=== PATIENT | male | born 1975 | race Caucasian/White ===

== ENCOUNTER 2020-06-08 17:18 | Inpatient (IN) | payer BC ==
[~2020-06-08] VITALS: Ht 172.7 cm; Wt 102.0 kg
[2020-06-08 18:56] LABS: BASOPHILS ABSOLUTE AUTO 0.05 K/mm3 (0.00-0.23); BASOPHILS PERCENT AUTO 0 % (0-2); EOSINOPHILS PERCENT AUTO 0 % (0-6); Hematocrit 47.7 % (37.0-53.0); Hemoglobin 16.4 g/dL (13.5-17.5); IMMATURE GRAN ABSOLUTE AUTO 0.11 K/mm3 (0.00-0.10); IMMATURE GRAN PERCENT AUTO 1 % (0-1); LYMPHOCYTES ABSOLUTE AUTO 1.31 K/mm3 (0.84-5.20); LYMPHOCYTES PERCENT AUTO 7 % (21-46); MONOCYTES ABSOLUTE AUTO 0.69 K/mm3 (0.16-1.47); MONOCYTES PERCENT AUTO 4 % (4-13); Mean Corpuscular HGB 29.3 pg (26.0-34.0); Mean Corpuscular HGB Conc 34.4 g/dL (31.5-36.5); Mean Corpuscular Volume 85 fL (80-100); NEUTROPHILS ABSOLUTE AUTO 17.79 K/mm3 (1.96-9.15); NEUTROPHILS PERCENT AUTO 89 % (41-73); Platelet Count 253 K/mm3 (150-400); RDW Coefficient Variation 11.6 % (11.7-14.2); RDW Standard Deviation 35.9 fL (35.1-46.3); White Blood Cell Count 19.95 K/mm3 (4.00-11.30)
[2020-06-08 19:14] LABS: Alanine Aminotransfer (ALT/SGP 32 U/L (12-78); Albumin/Globulin Ratio 0.9 (0.8-1.8); Alk Phos 99 U/L (50-136); Anion Gap 9 mmol/L (6-16); Aspartate Aminotrans (AST/SGOT 21 U/L (12-37); Bilirubin, Total 0.5 mg/dL (0.1-1.0); Blood Urea Nitrogen 15 mg/dL (8-24); Bun/Creatinine Ratio 20.7 (12.0-20.0); CO2, Blood 24 mmol/L (21-32); Calcium, Blood 9.2 mg/dL (8.5-10.1); Chloride, Blood 103 mmol/L (98-108); Creatinine, Blood 0.72 mg/dL (0.60-1.20); Globulin, Blood 4.4 g/dL (2.2-4.0); Glomerular Filtration Rate >60 (60-); Glucose, Blood 108 mg/dL (70-99); Sodium, Blood 136 mmol/L (136-145); Total Protein, Blood 8.4 g/dL (6.4-8.2)
[2020-06-08 20:07] LABS: International Normalized Ratio 0.96; Prothrombin Time Results 10.3 Sec (9.7-11.5)
[2020-06-08 21:05] LABS: Source, Urine Clean Catch
[2020-06-08 21:07] LABS: Bilirubin, Urine Neg (Neg); Blood, Urine Neg (Neg); Glucose Qualitative, Urine Neg (Neg); Ketones, Urine 2+ (Neg); Leukocyte Esterase, Urine Neg (Neg); Nitrite, Urine Neg (Neg); Protein, Urine Neg (Neg); Urobilinogen, Urine NORM (Normal)
[2020-06-08 21:20] LABS: U Amphetamine Screen Not Detected; U Barbituate Screen Not Detected; U Benzodiazapine Screen Not Detected; U Buprenorphine Screen Not Detected; U Cannabinoids Screen Not Detected; U Cocaine Screen Not Detected; U Methadone Screen Not Detected; U Methamphetamine Screen Not Detected; U Opiates Screen Not Detected; U Oxycodone Screen Not Detected; U Phencyclidine Screen Not Detected; U Propoxyphene Screen Not Detected
[2020-06-08 21:23] LABS: Appearance, Urine Clear (Clear); Color, Urine Yellow (P-Yellow)
[2020-06-08 22:24] LABS: Influenza A, PCR Negative (NEGATIVE); Influenza B, PCR Negative (NEGATIVE); Resp Syncytial Virus, PCR Negative (NEGATIVE); SARS-Cov-2 (COVID-19) PCR, MMC Negative (NEGATIVE)
[2020-06-08 22:31] LABS: Appearance, CSF Clear (Clear); Color, CSF No Color (No Color); RBC Count, CSF 1 /mm3 (0-0); WBC Count, CSF 0 /mm3 (0-5)
[2020-06-08 22:41] LABS: Glucose, CSF 59 mg/dL (40-70)
[2020-06-08 22:42] LABS: Appearance, CSF Clear (Clear); Color, CSF No Color (No Color); RBC Count, CSF 91 /mm3 (0-0); WBC Count, CSF 0 /mm3 (0-5)
[2020-06-08 22:55] LABS: Lymphocytes, CSF 36 % (40-80); Monocytes, CSF 26 % (15-45); Neutrophils, CSF 38 % (0-6)
[2020-06-08 23:00] LABS: Lymphocytes, CSF 15 % (40-80); Monocytes, CSF 11 % (15-45); Neutrophils, CSF 74 % (0-6)
[2020-06-09 00:31] LABS: Enterovirus Not Detected (NOT DETECT); Escherichia Coli K1 Not Detected (NOT DETECT); Haemophilus Influenza Not Detected (NOT DETECT); Herpes Simplex Virus 1 Not Detected (NOT DETECT); Listeria Monocytogenes Not Detected (NOT DETECT); Neisseria Meningitidis Not Detected (NOT DETECT); Streptococcus Agalactiae Not Detected (NOT DETECT); Streptococcus Pneumoniae Not Detected (NOT DETECT)
[2020-06-09 00:32] LABS: Cryptococcus Neoformans/Gattii Not Detected (NOT DETECT); Herpes Simplex Virus 2 Not Detected (NOT DETECT); Human Herpesvirus 6 Not Detected (NOT DETECT); Human Parechovirus Not Detected (NOT DETECT); Varicella Zoster Virus Not Detected (NOT DETECT)
--- NOTE | 2020-06-09 05:00 | NUR ---
ADMIT TO ICU 13 PT ARRIVES TO ICU-13 VIA GURNEY AT 0155. PT ABLE TO AMBULATE TO ICU BED WITH MINIMAL ASSISTANCE. ON RA, NSR, VSS. PT COMPLAINS OF HEADACHE /. HE STATES HE WANTS TO SLEEP. 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 DURING INITIAL SCREEN QUESTIONS AND MRI SCREENING QUESTIONS, PT YELLS "ITS NO TO EVERYTHING." AFTER ASKING ABOUT SCAR ON BACK PT SAYS ITS FROM HIS HEART SURGERY BUT UNWILLING TO GO INTO DETAILS. PT BECOMES EASILY AGITATED AND ASKED LIGHT TO BE TURNED OFF SO HE CAN SLEEP. WILL CONTINUE TO MONITOR.
[2020-06-09 06:12] LABS: BASOPHILS ABSOLUTE AUTO 0.06 K/mm3 (0.00-0.23); BASOPHILS PERCENT AUTO 0 % (0-2); EOSINOPHILS ABSOLUTE AUTO 0.05 K/mm3 (0.00-0.68); EOSINOPHILS PERCENT AUTO 0 % (0-6); Hematocrit 40.8 % (37.0-53.0); Hemoglobin 13.7 g/dL (13.5-17.5); IMMATURE GRAN ABSOLUTE AUTO 0.08 K/mm3 (0.00-0.10); IMMATURE GRAN PERCENT AUTO 1 % (0-1); LYMPHOCYTES PERCENT AUTO 24 % (21-46); MONOCYTES ABSOLUTE AUTO 1.24 K/mm3 (0.16-1.47); MONOCYTES PERCENT AUTO 9 % (4-13); Mean Corpuscular HGB 28.7 pg (26.0-34.0); Mean Corpuscular HGB Conc 33.6 g/dL (31.5-36.5); Mean Corpuscular Volume 86 fL (80-100); NEUTROPHILS ABSOLUTE AUTO 9.01 K/mm3 (1.96-9.15); NEUTROPHILS PERCENT AUTO 66 % (41-73); Platelet Count 223 K/mm3 (150-400); RDW Coefficient Variation 11.8 % (11.7-14.2); RDW Standard Deviation 36.7 fL (35.1-46.3); Red Blood Cell Count 4.77 M/mm3 (4.30-5.90); White Blood Cell Count 13.64 K/mm3 (4.00-11.30)
[2020-06-09 06:23] LABS: Anion Gap 5 mmol/L (6-16); Blood Urea Nitrogen 14 mg/dL (8-24); Bun/Creatinine Ratio 18.6 (12.0-20.0); CO2, Blood 28 mmol/L (21-32); Chloride, Blood 109 mmol/L (98-108); Creatinine, Blood 0.75 mg/dL (0.60-1.20); Glomerular Filtration Rate >60 (60-); Glucose, Blood 114 mg/dL (70-99); Potassium, Blood 3.7 mmol/L (3.5-5.5); Sodium, Blood 142 mmol/L (136-145)
--- NOTE | 2020-06-09 07:58 | NUR ---
SHIFT SUMMARY PT SLEEPING IN BED, SNORING. REMAINS ON RA. ABLE TO GIVE MEDICATION VIA IV IN LEFT AC. ASKS FOR LIGHT TO BE TURNED OFF. HEADACHE CONTINUES, STILL AT SAME LEVEL BEFORE. WILL REPORT TO ONCOMING SHIFT.
--- NOTE | 2020-06-09 08:00 | NUR ---
ASSUMED CARE REPORT RECIEVED. PT IS RESTING QUIETLY UPON ENTERING ROOM. PT AWAKENS TO VERBAL STIMULI. PT IS IRRITABLE, BUT ALERT AND ORIENTED. PT ANSWER QUESTIONS APPROPRIATELY. PT COMPLAINS OF HEADACHE AT THIS TIME, LESS SEVERE THAN LAST NIGHT. IV'S SALINE LOCKED. VITAL SIGNS STABLE, PT ON ROOM AIR. PT USING URINAL TO VOID WELL. DR COBURN AT BEDSIDE. WILL CONTINUE TO MONITOR.
--- NOTE | 2020-06-09 15:10 | NUR ---
TRANSFER TO 210 REPORT CALLED, ALL QUESTIONS ANSWERED. PT TAKEN TO ROOM 210 VIA WHEELCHAIR WITH EMPLOYEE RELATIONS REPRESENTATIVE. ALL PT MEDS AND BELONGINGS TAKEN WITH PT.
--- NOTE | 2020-06-09 15:20 | NUR ---
PT TRANSFERRED TO SURGICAL FLOOR, ROOM 210. THIS RN BEEN GIVEN REPORT AND IS ASSUMING CARE AT THIS TIME.
--- NOTE | 2020-06-09 17:13 | NUR ---
PT IV IN LAC AND RAC. PT BEEN BENDING ARM, WILL MED WITH OTHER IV ABX WHEN CURRENT ABX COMPLETE SO THAT PT MAY USE ONE ARM WITHOUT HIS IV BEEPING.
[2020-06-10 01:08] LABS: BASOPHILS ABSOLUTE AUTO 0.09 K/mm3 (0.00-0.23); BASOPHILS PERCENT AUTO 1 % (0-2); EOSINOPHILS ABSOLUTE AUTO 0.04 K/mm3 (0.00-0.68); EOSINOPHILS PERCENT AUTO 0 % (0-6); Hematocrit 40.9 % (37.0-53.0); Hemoglobin 13.6 g/dL (13.5-17.5); IMMATURE GRAN ABSOLUTE AUTO 0.04 K/mm3 (0.00-0.10); IMMATURE GRAN PERCENT AUTO 0 % (0-1); LYMPHOCYTES ABSOLUTE AUTO 2.65 K/mm3 (0.84-5.20); LYMPHOCYTES PERCENT AUTO 26 % (21-46); MONOCYTES ABSOLUTE AUTO 0.74 K/mm3 (0.16-1.47); MONOCYTES PERCENT AUTO 7 % (4-13); Mean Corpuscular HGB 28.6 pg (26.0-34.0); Mean Corpuscular HGB Conc 33.3 g/dL (31.5-36.5); Mean Corpuscular Volume 86 fL (80-100); Mean Platelet Volume 10.1 fL (9.1-12.4); NEUTROPHILS ABSOLUTE AUTO 6.64 K/mm3 (1.96-9.15); NEUTROPHILS PERCENT AUTO 65 % (41-73); Platelet Count 193 K/mm3 (150-400); RDW Coefficient Variation 11.8 % (11.7-14.2); RDW Standard Deviation 37.2 fL (35.1-46.3); Red Blood Cell Count 4.76 M/mm3 (4.30-5.90)
[2020-06-10 01:27] LABS: Anion Gap 4 mmol/L (6-16); Blood Urea Nitrogen 13 mg/dL (8-24); Bun/Creatinine Ratio 18.1 (12.0-20.0); CO2, Blood 28 mmol/L (21-32); Calcium, Blood 7.9 mg/dL (8.5-10.1); Chloride, Blood 109 mmol/L (98-108); Creatinine, Blood 0.72 mg/dL (0.60-1.20); Glomerular Filtration Rate >60 (60-); Glucose, Blood 141 mg/dL (70-99); Potassium, Blood 3.9 mmol/L (3.5-5.5); Sodium, Blood 141 mmol/L (136-145)
[2020-06-10 01:28] LABS: Vancomycin, Trough 17.1 ug/mL (5.0-10.0)
--- NOTE | 2020-06-10 04:18 | NUR ---
SHIFT SUMMARY PT HAS BEEN A/O X4 AND IND IN ROOM. TOLERATING PO INTAKE W/O NAUSEA AND VOIDING. PT C/O HEADACHE OVERNIGHT. MED WITH TYLENOL WITHOUT IMPROVEMENT. 50 FENTANYL THEN GIVEN, AFTER WHICH PT WAS ABLE TO GET SOME SLEEP. NEURO ASSESSMENT WNL OVERNIGHT. PT RESTING AT THIS TIME, CALL LIGHT IN REACH.
--- NOTE | 2020-06-10 04:54 | NUR ---
PT REFUSING AM VITALS AT THIS TIME.
--- NOTE | 2020-06-10 04:59 | NUR ---
PATIENT REFUSED AM VITALS. RN NOTIFIED.
--- NOTE | 2020-06-10 16:07 | NUR ---
SHIFT SUMMARY AA0X4. PT REPORTS HEADACHE DURING SHIFT UNRELIEVED WITH EMAR PAIN MEDICATIONS. STATES TOLERABLE BUT CONSTANT. PT IND IN ROOM TOLERATING PO AND VOIDING REGULARILY. SLEEPING IN BED T/O SHIFT REQUESTING TO BE LEFT ALONE MUCH POSSIBLE. IV FLUIDS/ ABX INFUSING T/O THE DAY.
--- NOTE | 2020-06-11 05:22 | NUR ---
SHIFT SUMMARY PT IS A/O X4, IND IN ROOM, AMBULATING. TOLERATING PO INTAKE AND VOIDING. NEURO CHECKS WNL OVERNIGHT. ABX INFUSING PER ORDERS OVERNIGHT. PT IS ANXIOUS TO GET HOME. PT DOES C/O HEADACHE BUT SAYS THAT MEDICATIONS HAVE NOT HELPED. HE DOES REPORT SLIGHT IMPROVEMENT IN HEADACHE. PT RESTING IN BED AT THIS TIME, CALL LIGHT IN REACH.
[2020-06-11 09:49] LABS: Vancomycin, Trough 23.2 ug/mL (5.0-10.0)
[2020-06-11] MEDS ORDERED: ACET325 PO (11:10)
[2020-06-11] MEDS ORDERED: Nicorette4 MG BC (11:11)
--- NOTE | 2020-06-11 11:33 | NUR ---
ENTERED ROOM TO NOTIFY PT THAT WE HAD RECIEVED DISCHARGE ORDERS. UPON ENTERING PT STATED HIS HEADACHE HAD RETURNED AND WAS QUITE BAD. WHEN ASKED FOR MORE INFORMATION THE PATIENT STATED IT WAS BAD WHEN CAME TO THE ER PREVIOUSLY. THE PAIN IS LOCATED BEHIND HIS EYES AND THE BACK OF HIS HEAD. PRIMARILY ON THE LEFT SIDE PER THE PATIENT. HE ALSO STATED IT IS DIFFICULT TO OPEN HIS EYES BUT HIS VISION IS BLURRY. HE ALSO IS NAUSEOUS AND WAS DRY HEAVING. HE WAS ABLE TO TAKE HIS PRN MEDS AND KEEP THEM DOWN. SPOKE WITH DR. COBURN AT 1100 SHE WANTED ME TO ADMINISTER HIS PRN MEDS AND CALL HER BACK IF PAIN IS UNRELIEVED. PT CURRENTLY LAYING DOWN IN BED WITH A COOL WASHCLOTH ON HIS FACE. HE HAS TEARS IN HIS EYES AND IS ASKING "WHY IS THIS HAPPENING TO ME"
--- NOTE | 2020-06-11 16:06 | NUR ---
SHIFT SUMMARY AA0X4. PT HAS BEEN RESTING IN BED. SEE PREVIOUS NOTES REGARDING NEW HEADACHE STARTING. MEDICATED PATIENT PER EMAR, CURRENTLY WAITING TO SEE IF PATIENT HAS RELIEF OF HIS SYMPTOMS. PT HAS NOT HAD ANYMORE NAUSEA SINCE THAT TIME. PT STILL IND IN ROOM GETTING UP TO VOID FREQUENTLY. PT STILL NOT USING CALL LIGHT BUT DECLINING NEEDING ANYTHING ELSE AT THIS TIME.
[2020-06-11] MEDS ORDERED: SUMA25 PO (17:18)
[2020-06-11] MEDS ORDERED: NAPR500 PO (17:20)
[2020-06-11] MEDS ORDERED: FIORINAL 50-321 EACH PO (17:22)
[2020-06-11] MEDS ORDERED: ONDA4 PO (17:34)
[2020-06-11] MEDS ORDERED: TOPI25 PO (17:36)
--- NOTE | 2020-06-11 18:45 | NUR ---
DISCHARGE PT LEFT AT 1840. PT WALKED OUT ON HIS OWN AND DECLINED WHEELCHAIR. HE LEFT WITH A FAMILY MEMBER TO PROVIDE A RIDE FOR HIM. PT FELT MUCH BETTER REPORTED PAIN OF 3/10. DISCHARGE INFO GONE OVER WITH PATIENT, PACKET WITH PATIENT. PT HAD NO FURTHER QUESTIONS. MEDICATIONS FAXED TO [facility] PER PT REQUEST. ALL BELONGINGS WITH PATIENT.
[2020-06-14 12:08] LABS: LYME IGG/IGM AB <0.91 ISR (0.00-0.90)
== END 2020-06-11 18:49 | disposition home or self-care (01) | DRG 103 ==
LOC: ER 17:18 → ERHOLD 22:56 → ER 06-09 01:28 → ERHOLD 06-09 01:28 → ICUW 06-09 01:28 → ERHOLD 06-09 01:55 → ICUW 06-09 01:55 → SURS 06-09 15:25
PROVIDERS: Emergency Medicine; Family Medicine; Nurse Practitioner Acute Care; Pharmacist; Physician Assistant; ADMIT Internal Medicine
PROC: 009U3ZX Drainage of Spinal Canal, Percutaneous Approach, Diagnostic (ICD-10-PCS; principal; 2020-06-09)
DX: G43.909 Migraine, unspecified, not intractable, without status migrainosus (principal); G93.49 Other encephalopathy; F17.220 Nicotine dependence, chewing tobacco, uncomplicated; G40.909 Epilepsy, unspecified, not intractable, without status epilepticus; B00.9 Herpesviral infection, unspecified; Z20.822 Contact with and (suspected) exposure to COVID-19
CPT/HCPCS: 0241U; 36415; 62270; 70450; 70551; 71045; 80048; 80053; 80202; 81003; 82140; 82945; 82947; 83605; 84157; 84443; 84484; 85025; 85610; 85730; 86618; 86788; 86789; 87040; 87070; 87205; 87483; 89051; 93005; 93010; 96365-59; 96366-59; 96367-59; 96368; 96375-59; 99285-25; A9270; J0133; J0696; J1170; J1885; J2405; J2765; J3010; J3370; J7030; J7040; J7050; J8499